=== PATIENT | male | born 1960 | race Caucasian/White ===

== ENCOUNTER → 2025-09-14 | Emergency (ER) | payer MEDICAID ==
[~2025-09-14] VITALS: Ht 167.6 cm; Wt 68.2 kg
[~2025-09-14] MED LIST: NAPR-1196 PO; NOCURR
[2025-09-14 20:31] VITALS: TEMP 98.6
[2025-09-14 20:41] VITALS: BP 148/102; PULSE 81; RESP 12; O2SAT 96
[2025-09-14] MEDS: KETOROLAC TROMETHAMINE 30 MG/ML VIAL IM ONE (23:31)
== END | disposition still patient (30) ==
LOC: EMS 20:17
DX: S09.90XA Unspecified injury of head, initial encounter (principal); G89.29 Other chronic pain; F12.90 Cannabis use, unspecified, uncomplicated; F14.90 Cocaine use, unspecified, uncomplicated; F15.90 Other stimulant use, unspecified, uncomplicated; W19.XXXA Unspecified fall, initial encounter; Y93.89 Activity, other specified; Y92.89 Other specified places as the place of occurrence of the external cause; Y99.8 Other external cause status
CPT/HCPCS: 99285; 70450; 73030; 73080; 73502; 72125; 96372; J1885